=== PATIENT | female | born 1985 | race Hispanic/Latino ===

== ENCOUNTER 2018-06-19 08:58 | Emergency (ER) | payer MEDICAID, OTHER | END 2018-06-19 09:44 | disposition home or self-care (01) | LOC: EDH 08:58 | DX: S82.891A Other fracture of right lower leg, initial encounter for closed fracture (principal); S82.892A Other fracture of left lower leg, initial encounter for closed fracture; Z79.899 Other long term (current) drug therapy; W18.39XA Other fall on same level, initial encounter; Y93.01 Activity, walking, marching and hiking; Y92.098 Other place in other non-institutional residence as the place of occurrence of the external cause; Y99.8 Other external cause status | CPT/HCPCS: 99281 ==